=== PATIENT | female | born 1960 | race Caucasian/White ===

== ENCOUNTER 2022-01-28 14:54 | Outpatient (CLI) | payer MEDICARE, MEDICAID, SELFPAY ==
[2022-01-28 21:44] LABS: Albumin* 4.5 g/dL (3.3-5.0)
[2022-01-28 21:47] LABS: Alkaline Phosphatase* 70 U/L (40-150); Aspartate Amino Transferase* 28 U/L (12-35); Bilirubin Direct* 0.3 mg/dL (0.0-0.5); Bilirubin Total* 0.5 mg/dL (0.1-1.5); Lipase* 26 U/L (23-300); Total Protein* 7.2 g/dL (6.0-8.3)
[2022-01-28 21:48] LABS: Alanine Aminotransferase* 26 U/L (4-35)
[2022-01-28 21:58] LABS: Troponin I* < 0.01 ng/mL (0.01-0.04)
== END 2022-01-28 14:55 | disposition home or self-care (01) ==
PROVIDERS: PCP Physician Assistant Medical; Visit Provider Physician Assistant Medical
DX: R10.13 Epigastric pain (principal)
CPT/HCPCS: 80076; 83690; 84484

== ENCOUNTER 2022-04-28 13:55 | Outpatient (CLI) | payer MEDICARE, MEDICAID, SELFPAY | END 2022-04-28 13:56 | disposition home or self-care (01) | PROVIDERS: PCP Physician Assistant Medical; Visit Provider Physician Assistant Medical | DX: R01.1 Cardiac murmur, unspecified (principal); I51.7 Cardiomegaly; I10 Essential (primary) hypertension; I35.1 Nonrheumatic aortic (valve) insufficiency | CPT/HCPCS: 93306 ==